=== PATIENT | female | born 1960 | race Caucasian/White ===

== ENCOUNTER → 2019-01-02 | Outpatient (CLI) | payer BC ==
--- NOTE | 2019-01-02 20:08 | Diagnostic Imaging Report ---
INDICATION: Routine screening. No prior mammograms are available for comparison. 2-D and 3-D bilateral screening mammography was performed with a Computer Aided Detection (CAD) system. FINDINGS: Both breasts are heterogeneously dense, limiting the sensitivity of mammography. No mass or malignant appearing microcalcifications are seen. There are benign calcifications on the left. Axillae are unremarkable. IMPRESSION: No mammographic features suspicious for malignancy are identified. ACR BI-RADS Category 2: Benign findings. Result letter will be mailed to the patient. Note: At least 10% of breast cancer is not imaged by mammography. Dictated by: Dictated on workstation # [id number]
== END ==
LOC: RAD 10:48
PROVIDERS: ATTEND Nurse Practitioner Primary Care
DX: Z12.31 Encounter for screening mammogram for malignant neoplasm of breast (principal)
CPT/HCPCS: 77067

== ENCOUNTER → 2021-06-15 | Outpatient (CLI) | payer BC, OTHER ==
--- NOTE | 2021-06-16 11:20 | Diagnostic Imaging Report ---
INDICATION: Routine screening. Comparison is made prior mammogram 01/02/2019. 2-D and 3-D bilateral screening mammography was performed with CAD. Both breasts are heterogeneously dense, limiting the sensitivity of mammography. Occasional benign calcifications are noted in both breasts. No mass or malignant-appearing microcalcifications are seen. Axillae are unremarkable. IMPRESSION: BI-RADS Category 2 No mammographic features suspicious for malignancy are identified. ACR BI-RADS Category 2: Benign findings. Result letter will be mailed to the patient. Note: At least 10% of breast cancer is not imaged by mammography. Dictated by: Dictated on workstation # [id number]
== END ==
LOC: RAD 15:00
PROVIDERS: ATTEND Nurse Practitioner Family
DX: Z12.31 Encounter for screening mammogram for malignant neoplasm of breast (principal)
CPT/HCPCS: 77063; 77067

== ENCOUNTER 2021-07-05 05:41 | Outpatient (CLI) | payer BC, OTHER ==
[~2021-07-05] VITALS: Ht 160 cm; Wt 72.6 kg
[2021-07-05] MEDS ORDERED: MELO15TA39 PO (13:34)
[2021-07-05] MEDS ORDERED: MULT-593 PO (13:34)
== END 2021-07-05 15:01 | disposition home or self-care (01) ==
LOC: PREOP 05:41
PROVIDERS: ATTEND Surgery
DX: Z01.818 Encounter for other preprocedural examination (principal); Z12.11 Encounter for screening for malignant neoplasm of colon

== ENCOUNTER 2021-07-12 06:16 | Day surgery (SDC) | payer BC, OTHER ==
[~2021-07-12] VITALS: Ht 160 cm; Wt 72.6 kg
[~2021-07-12 06:16] MED LIST: MELO15TA39 PO; MULT-593 PO
[2021-07-12] MEDS ORDERED: LACTATED RINGERS 1,000 ML IV STA (06:54)
[2021-07-12 07:39] VITALS: BP 111/73
[2021-07-12] MEDS ORDERED: MIDAZOLAM 2 MG/2 ML (VERSED) VIAL ONE (08:40)
[2021-07-12] MEDS ORDERED: PROPOFOL INJECTION 0 ML IV ONE (08:40)
[2021-07-12] MEDS ORDERED: proPOfol 200 MG/20 ML (DIPRIVAN) VIAL IV ONE (08:49)
[2021-07-12 09:10] VITALS: BP 100/64
[2021-07-12 09:14] VITALS: BP 95/65
--- NOTE | 2021-07-12 09:14 | Progress Note-Post Operative ---
Post-Operative Progess Note Surgeon (s)/[employer] (s) Surgeon YON GUO DO [employer]: na Pre-Operative Diagnosis Screening colonoscopy Post-Operative Diagnosis Diverticulosis Procedure & Operative Findings Date of Procedure 07/12/21 Procedure Performed/Findings colonoscopy Anesthesia Type Per FIELD OBSERVER Estimated Blood Loss Estimated blood loss (mL): none Specimens/Packing Specimens Removed na YON GUO DO Jul 12, 2021 09:13
--- NOTE | 2021-07-12 09:15 | Discharge Inst-Simple/Standard ---
Discharge Inst-Standard Patient Instructions/Follow Up Plan of Care/Instructions/FU: 10 years Brooks unless family history of colon cancer which would be 5 years. Any issues before that be seen at that time. Activity as Tolerated: Yes Discharge Diet: Regular Diet (high fiber) YON GUO DO Jul 12, 2021 09:15
[2021-07-12 09:20] VITALS: BP 94/65
[2021-07-12 09:43] VITALS: BP 98/64
[2021-07-12 09:44] VITALS: BP 98/64
--- NOTE | 2021-07-12 13:25 | OPERATIVE REPORT ---
DATE OF SERVICE: 07/12/2021 PREOPERATIVE DIAGNOSIS: Screening colonoscopy. POSTOPERATIVE DIAGNOSIS: Diverticulosis. PROCEDURE PERFORMED: Colonoscopy. SURGEON: Yon Guy DO. ANESTHESIA: Per TRAVELING ACCOUNTANT. ESTIMATED BLOOD LOSS: None. COMPLICATIONS: None. INDICATIONS FOR PROCEDURE: The patient is a 60-year-old female needing screening colonoscopy. She understands risks and benefits of the procedure and wished to proceed with procedure. Consent was signed in the chart. DESCRIPTION OF PROCEDURE: The patient was taken to the endoscopy suite and placed in a left lateral recumbent position. Timeout was performed. Digital rectal exam was performed. No palpable polyps, masses or ulcerations. Scope was inserted in the rectum and advanced all the way to cecum with minimal difficulty. Prep was adequate. Scope was then slowly retracted back. No polyps, masses or ulcerations in the cecum, ascending, transverse and descending colon. In the sigmoid colon, a moderate amount of diverticulosis was present. No polyps, masses or ulcerations. Once in the rectum, scope was retroflexed noting no other pathology. Scope was returned to its normal position, slowly withdrawn until completely removed. The patient tolerated the procedure well without any complications, taken to recovery room in stable condition. RECOMMENDATIONS: The patient will need repeat colonoscopy in 10 years unless family history of colon cancer, which would then be five years. Any issues before that be seen at that time. CC: Tammie Littlejohn MD - requested, unable to deliver. Job ID: [id number] DocumentID: [id number] Dictated Date: 07/12/2021 09:11:27 Finish Carpenter Date: 07/12/2021 13:24:36 Dictated By: YON GUY DO
--- NOTE | 2021-07-12 14:24 | Anesthesia-General Post-Op ---
MAC Patient Condition Mental Status/LOC: Same as Preop Cardiovascular: Satisfactory Nausea/Vomiting: Absent Respiratory: Satisfactory Pain: Controlled Complications: Absent Post Op Complications Complications None Follow Up Care/Instructions Patient Instructions None needed. Anesthesiology Discharge Order Discharge Order Patient is doing well, no complaints, stable vital signs, no apparent adverse anesthesia problems. No complications reported per nursing. EVANGELINA LANE CRNA Jul 12, 2021 14:24
== END 2021-07-12 09:45 | disposition home or self-care (01) ==
LOC: ENDO 06:16
PROVIDERS: ATTEND Surgery
DX: Z12.11 Encounter for screening for malignant neoplasm of colon (principal); K57.30 Diverticulosis of large intestine without perforation or abscess without bleeding